=== PATIENT | male | born 1965 | race Caucasian/White ===

== ENCOUNTER 2016-11-04 11:14 | Inpatient (IN) | payer BC ==
[~2016-11-04] VITALS: Ht 190.5 cm; Wt 199.1 kg
[2016-11-04 13:38] LABS: EOSINOPHIL (%) 0.1 % (0-5); HEMATOCRIT 47.3 % (38.0-50.0); IMMATURE GRANULOCYTE (%) 0.4 % (0.0-0.7); IMMATURE GRANULOCYTE COUNT 0.1 K/uL; INSTRUMENT ABS NEUTROPHIL CT 12.5 K/uL; LYMPHOCYTE COUNT 1.5 K/uL (1.0-2.8); MCH 26.7 PG (29.0-34.0); MCHC 33.2 G/DL (30.0-36.0); MCV 80.6 FL (86-99); MEAN PLAT.VOLUME 9.6 uM^3 (9.0-12.4); MONOCYTE (%) 5.2 % (3-12); MONOCYTE COUNT 0.8 K/uL (0-0.8); NEUTROPHIL (%) 84.2 % (45-76); NEUTROPHIL COUNT 12.5 K/uL (1.8-6.4); PLATELET COUNT 324 K/uL (156-360); RBC DIS.WIDTH-CV 14.8 % (11.8-14.6); RBC DIS.WIDTH-SD 43.2 % (39-53); RED BLOOD COUNT 5.87 M/uL (4.00-5.50); WHITE BLOOD COUNT 14.8 K/uL (4.1-10.2)
[2016-11-04 13:46] LABS: CHLORIDE 103 mEq/L (99-109); POTASSIUM 4.5 mEq/L (3.7-5.4); SODIUM 140 mEq/L (136-147)
[2016-11-04 13:48] LABS: GLUCOSE 118 mg/dL (70-99)
[2016-11-04 13:50] LABS: ANION GAP 11 MEQ/L (2-14); TOTAL BILIRUBIN 0.5 mg/dL (0.0-1.0)
[2016-11-04 13:52] LABS: ALKALINE PHOSPHATASE 74 IU/L (3-129); GFR ESTIMATE (CALCULATED) > 59 mL/min/
[2016-11-04 13:53] LABS: UREA NITROGEN (BUN) 10 mg/dL (9-23)
[2016-11-04 13:54] LABS: DIRECT BILIRUBIN 0.3 mg/dL (0.0-0.3)
[2016-11-04 13:55] LABS: LIPASE 13 U/L (1.0-51.0)
[2016-11-04 15:38] LABS: ADD MIUA? NO; BILIRUBIN NEGATIVE; BLOOD NEGATIVE; COLOR YELLOW ((YELLOW)); GLUCOSE (STRIP) NEGATIVE; KETONES 80; LEUKOCYTES NEGATIVE; NITRITE NEGATIVE; PROTEIN (STRIP) NEGATIVE; UROBILINOGEN 0.2 MG/DL (0.2-1.0)
[2016-11-04] MEDS ORDERED: MORGIDOX50 MG PO (15:48)
[2016-11-04] MEDS ORDERED: NAPROSYN500 MG PO (15:48)
[2016-11-04] MEDS ORDERED: MSM1000 MG PO (15:49)
[2016-11-04] MEDS ORDERED: ASPIR 8181 M1 PO (15:49)
[2016-11-04] MEDS ORDERED: COLLAGEN PLUS1 EACH PO (15:50)
[2016-11-04 21:13] VITALS: BP 134/93
[2016-11-04 23:13] VITALS: BP 160/91
[2016-11-05 03:03] VITALS: BP 125/69
[2016-11-05 06:55] VITALS: BP 159/81
[2016-11-05 16:18] VITALS: BP 120/58
[2016-11-05 19:28] VITALS: BP 142/84
[2016-11-05 23:23] VITALS: BP 151/82
[2016-11-06 06:55] VITALS: BP 130/74
[2016-11-06 15:12] VITALS: BP 153/90
[2016-11-06 23:37] VITALS: BP 107/57
[2016-11-07 07:14] VITALS: BP 147/87
[2016-11-07] MEDS ORDERED: ENDOCET 5-3251 EACH PO (08:50)
== END 2016-11-07 09:45 | disposition home or self-care (01) | DRG 354 ==
LOC: EME 11:14 → SDC 17:20 → EME 17:20 → 2SOUTH 19:30 → ENRESERV 19:53 → 2EAST 20:58
PROVIDERS: Emergency Medicine
DX: K43.6 Other and unspecified ventral hernia with obstruction, without gangrene (principal); Z68.43 Body mass index [BMI] 50.0-59.9, adult; E66.01 Morbid (severe) obesity due to excess calories
CPT/HCPCS: 74176; 80048; 80076; 81003; 83690; 83735; 84484; 85025; 85610; 85730; 86850; 86900; 86901; 93005; 99281; 99285; C1781; G0378; J0131; J0330; J0690; J1170; J1335; J1650; J1885; J2250; J2270; J2405; J2710; J3010; J7030; J7120

== ENCOUNTER 2016-11-30 17:04 | Emergency (ER) | payer BC ==
[~2016-11-30] VITALS: Ht 190.5 cm; Wt 199.0 kg
[~2016-11-30 17:04] MED LIST: ASPIR 8181 M1 PO; COLLAGEN PLUS1 EACH PO; ENDOCET 5-3251 EACH PO; MORGIDOX50 MG PO; MSM1000 MG PO; NAPROSYN500 MG PO
[2016-11-30 20:01] LABS: HEMATOCRIT 42.1 % (38.0-50.0); MCH 26.1 PG (29.0-34.0); MCV 79.1 FL (86-99); MEAN PLAT.VOLUME 9.3 uM^3 (9.0-12.4); PLATELET COUNT 326 K/uL (156-360); RBC DIS.WIDTH-CV 14.9 % (11.8-14.6); RBC DIS.WIDTH-SD 42.4 % (39-53); RED BLOOD COUNT 5.32 M/uL (4.00-5.50)
[2016-11-30 20:12] LABS: CHLORIDE 104 mEq/L (99-109); POTASSIUM 3.8 mEq/L (3.7-5.4); SODIUM 136 mEq/L (136-147)
[2016-11-30 20:14] LABS: GLUCOSE 98 mg/dL (70-99)
[2016-11-30 20:15] LABS: ANION GAP 11 MEQ/L (2-14)
[2016-11-30 20:16] LABS: TOTAL BILIRUBIN 0.8 mg/dL (0.0-1.0)
[2016-11-30 20:17] LABS: ALKALINE PHOSPHATASE 73 IU/L (3-129)
[2016-11-30 20:18] LABS: GFR ESTIMATE (CALCULATED) > 59 mL/min/
[2016-11-30 20:19] LABS: UREA NITROGEN (BUN) 10 mg/dL (9-23)
[2016-12-01 02:22] VITALS: BP 137/81
== END 2016-12-01 02:23 | disposition short-term general hospital (02) ==
LOC: EME 17:04
PROVIDERS: Physician Assistant
DX: T81.4XXA Infection following a procedure, initial encounter (principal); L02.211 Cutaneous abscess of abdominal wall; J18.9 Pneumonia, unspecified organism; R50.82 Postprocedural fever; Y83.8 Other surgical procedures as the cause of abnormal reaction of the patient, or of later complication, without mention of misadventure at the time of the procedure; Z79.82 Long term (current) use of aspirin
CPT/HCPCS: 80053; 81003; 83605; 85027; 87040; 99281; 99285; J1885; J2543; J3370; J7030

== ENCOUNTER 2017-10-08 08:11 | Emergency (ER) | payer BC ==
[~2017-10-08] VITALS: Ht 190.5 cm; Wt 204.0 kg
[2017-10-08 08:53] LABS: HEMOGLOBIN 14.1 G/DL (12.5-16.6); MCH 27.1 PG (29.0-34.0); MCHC 33.6 G/DL (30.0-36.0); MCV 80.8 FL (86-99); PLATELET COUNT 270 K/uL (156-360); RBC DIS.WIDTH-SD 46.8 % (39-53); WHITE BLOOD COUNT 9.2 K/uL (4.1-10.2)
[2017-10-08 09:01] LABS: CHLORIDE 106 mEq/L (99-109); POTASSIUM 4.2 mEq/L (3.7-5.4); SODIUM 138 mEq/L (136-147)
[2017-10-08 09:03] LABS: GLUCOSE 123 mg/dL (70-99)
[2017-10-08 09:06] LABS: CREATININE 0.8 mg/dL (0.6-1.3); GFR ESTIMATE (CALCULATED) > 59 mL/min/ (58.99-99999)
[2017-10-08 09:07] LABS: UREA NITROGEN (BUN) 12 mg/dL (9-23)
[2017-10-08] MEDS ORDERED: PERCOCET 5/31 TABLET PO (09:07)
[2017-10-08 10:19] VITALS: BP 138/85
== END 2017-10-08 10:24 | disposition home or self-care (01) ==
LOC: EME 08:11
PROVIDERS: Nurse Practitioner Family
DX: M25.462 Effusion, left knee (principal); M17.12 Unilateral primary osteoarthritis, left knee
CPT/HCPCS: 73564; 80048; 85027; 99281; 99283